=== PATIENT | female | born 1950 | race Caucasian/White ===

== ENCOUNTER 2016-05-29 14:11 | Outpatient (CLI) | payer MEDICARE | END 2016-05-29 14:12 | disposition home or self-care (01) | LOC: NC 14:11 | PROVIDERS: ATTEND Family Medicine | DX: E11.9 Type 2 diabetes mellitus without complications (principal); Z71.3 Dietary counseling and surveillance; Z68.31 Body mass index [BMI] 31.0-31.9, adult; I10 Essential (primary) hypertension ==